=== PATIENT | male | born 1945 | race Caucasian/White ===

== ENCOUNTER 2019-12-23 13:27 | Inpatient (IN) | payer OTHER, MEDICARE ==
--- NOTE | 2019-12-23 14:23 | ED ---
General Adult HPI - General Chief complaint: Chest Pain Stated complaint: Chest Pain Time Seen by Provider: 12/23/19 13:40 Source: patient, RN notes reviewed, old records reviewed Mode of arrival: wheelchair Limitations: no limitations - History of Present Illness Initial comments: This is a 74-year-old male who presents emergency Department complaining of a 5- 6 month history of shortness of breath. Patient states yesterday he was short of breath after waking up from a nap and he also is experiencing chest pain. Patient states the pain and shortness of breath lasted about 15 minutes and then subsided. Patient states since that time he's had no shortness of breath or chest pain but he has not exerted himself at all. Patient states she has no risk factors for coronary artery disease except his family history is strong for coronary artery disease. Patient states he lost brother year ago who was younger than him to a heart attack. Patient denies any recent fever chills or cough. Patient denies any abdominal pain patient denies nausea vomiting diarrhea. Patient denies headache lightheadedness or dizziness. - Related Data Allergies Allergy/AdvReac Type Severity Reaction Status Date / Time No Known Allergies Allergy Verified 12/23/19 13:44 Review of Systems ROS Statement: Those systems with pertinent positive or pertinent negative responses have been documented in the HPI. ROS Other: All systems not noted in ROS Statement are negative. Past Medical History Past Medical History: Cancer, Hyperlipidemia Additional Past Medical History / Comment(s): sleep apnea, prostate ca History of Any Multi-Drug Resistant Organisms: None Reported Past Surgical History: Hernia Repair, Prostate Surgery Past Psychological History: PTSD Smoking Status: Current every day smoker Past Alcohol Use History: None Reported Past Drug Use History: None Reported General Exam - General Exam Comments Initial Comments: GENERAL: Patient is well-developed and well-nourished. Patient is nontoxic and well- hydrated and is in no acute distress. ENT: Neck is soft and supple. No significant lymphadenopathy is noted. Oropharynx is clear. Moist mucous membranes. Neck has full range of motion without eliciting any pain. EYES: The sclera were anicteric and conjunctiva were pink and moist. Extraocular movements were intact and pupils were equal round and reactive to light. Eyelids were unremarkable. PULMONARY: Unlabored respirations. Good breath sounds bilaterally. No audible rales rhonchi or wheezing was noted. CARDIOVASCULAR: There is a regular rate and rhythm without any murmurs gallops or rubs. ABDOMEN: Soft and nontender with normal bowel sounds. SKIN: Skin is clear with no lesions or rashes and otherwise unremarkable. NEUROLOGIC: Patient is alert and oriented x3. Cranial nerves II through XII are grossly intact. Motor and sensory are also intact. Normal speech, volume and content. Symmetrical smile. Cerebellar exam grossly intact. MUSCULOSKELETAL: Normal extremities with adequate strength and full range of motion. No lower extremity swelling or edema. No calf tenderness. LYMPHATICS: No significant lymphadenopathy is noted PSYCHIATRIC: Normal psychiatric evaluation. Limitations: no limitations Course Vital Signs 12/23/19 12/23/19 13:38 14:16 Temperature 98.3 F Pulse Rate 59 L Pulse Rate [ 64 Field Agent ] Respiratory 18 Rate Blood Pressure 156/70 O2 Sat by Pulse 95 Oximetry Medical Decision Making - Medical Decision Making EKG shows normal sinus rhythm at 63 bpm [place] interval is on a 54 QRS is 96 Q-T intervals 438 QTC is 448. Patient's EKG shows no ST segment elevation or depression. Left lower lobe pneumonia on the x-ray. Started the patient Rocephin and Zithromax. I spoke with Dr. Joy agreed to admit the patient admitted the patient wrote admitting orders. - Lab Data Result diagrams: 12/23/19 14:10 12/23/19 14:10 Lab Results 12/23/19 12/23/19 12/23/19 Range/Units 14:10 14:10 14:10 WBC 20.7 H (3.8-10.6) k/uL RBC 4.41 (4.30-5.90) m/uL Hgb 14.0 (13.0-17.5) gm/dL Hct 43.0 (39.0-53.0) % MCV 97.5 (80.0-100.0) fL MCH 31.9 (25.0-35.0) pg MCHC 32.7 (31.0-37.0) g/dL RDW 13.5 (11.5-15.5) % Plt Count 302 (150-450) k/uL Neutrophils % (Manual) 61 % Band Neutrophils % 4 % Lymphocytes % (Manual) 17 % Monocytes % (Manual) 10 % Eosinophils % (Manual) 5 % Basophils % (Manual) 1 % Metamyelocytes % 2 % Neutrophils # (Manual) 13.40 H (1.3-7.7) k/uL Lymphocytes # (Manual) 3.52 (1.0-4.8) k/uL Monocytes # (Manual) 2.07 H (0-1.0) k/uL Eosinophils # (Manual) 1.04 H (0-0.7) k/uL Basophils # (Manual) 0.21 H (0-0.2) k/uL Metamyelocytes # (Man) 0.41 H (0) k/uL Nucleated RBCs 0 (0-0) /100 WBC Manual Slide Review Performed PT 10.7 (9.0-12.0) sec INR 1.0 (<1.2) APTT 26.4 (22.0-30.0) sec D-Dimer 0.27 (<0.60) mg/L FEU Sodium 139 (137-145) mmol/L Potassium 4.2 (3.5-5.1) mmol/L Chloride 103 (98-107) mmol/L Carbon Dioxide 25 (22-30) mmol/L Anion Gap 11 mmol/L BUN 18 (9-20) mg/dL Creatinine 0.63 L (0.66-1.25) mg/dL Est GFR (CKD-EPI)AfAm >90 (>60 ml/min/1.73 sqM) Est GFR (CKD-EPI)NonAf >90 (>60 ml/min/1.73 sqM) Glucose 127 H (74-99) mg/dL Calcium 9.3 (8.4-10.2) mg/dL Magnesium 1.8 (1.6-2.3) mg/dL Total Bilirubin 0.4 (0.2-1.3) mg/dL AST 81 H (17-59) U/L ALT 59 H (4-49) U/L Alkaline Phosphatase 75 (38-126) U/L Troponin I (0.000-0.034) ng/mL NT-Pro-B Natriuret Pep pg/mL Total Protein 7.4 (6.3-8.2) g/dL Albumin 4.2 (3.5-5.0) g/dL 12/23/19 12/23/19 Range/Units 14:10 14:10 WBC (3.8-10.6) k/uL RBC (4.30-5.90) m/uL Hgb (13.0-17.5) gm/dL Hct (39.0-53.0) % MCV (80.0-100.0) fL MCH (25.0-35.0) pg MCHC (31.0-37.0) g/dL RDW (11.5-15.5) % Plt Count (150-450) k/uL Neutrophils % (Manual) % Band Neutrophils % % Lymphocytes % (Manual) % Monocytes % (Manual) % Eosinophils % (Manual) % Basophils % (Manual) % Metamyelocytes % % Neutrophils # (Manual) (1.3-7.7) k/uL Lymphocytes # (Manual) (1.0-4.8) k/uL Monocytes # (Manual) (0-1.0) k/uL Eosinophils # (Manual) (0-0.7) k/uL Basophils # (Manual) (0-0.2) k/uL Metamyelocytes # (Man) (0) k/uL Nucleated RBCs (0-0) /100 WBC Manual Slide Review PT (9.0-12.0) sec INR (<1.2) APTT (22.0-30.0) sec D-Dimer (<0.60) mg/L FEU Sodium (137-145) mmol/L Potassium (3.5-5.1) mmol/L Chloride (98-107) mmol/L Carbon Dioxide (22-30) mmol/L Anion Gap mmol/L BUN (9-20) mg/dL Creatinine (0.66-1.25) mg/dL Est GFR (CKD-EPI)AfAm (>60 ml/min/1.73 sqM) Est GFR (CKD-EPI)NonAf (>60 ml/min/1.73 sqM) Glucose (74-99) mg/dL Calcium (8.4-10.2) mg/dL Magnesium (1.6-2.3) mg/dL Total Bilirubin (0.2-1.3) mg/dL AST (17-59) U/L ALT (4-49) U/L Alkaline Phosphatase (38-126) U/L Troponin I <0.012 (0.000-0.034) ng/mL NT-Pro-B Natriuret Pep 53 pg/mL Total Protein (6.3-8.2) g/dL Albumin (3.5-5.0) g/dL Disposition Clinical Impression: Pneumonia, Chest pain Disposition: ADMITTED IP TO THIS HOSP Referrals: None,Stated [REFERRING] - 1-2 days Time of Disposition: 16:15
[2019-12-23 14:45] LABS: ALT 59 U/L (4-49); AST 81 U/L (17-59); African American GFR (CKD) >90 (>60 ml/min/1.73 sqM); Albumin 4.2 g/dL (3.5-5.0); Alkaline Phosphatase 75 U/L (38-126); Anion Gap 11 mmol/L; Blood Urea Nitrogen 18 mg/dL (9-20); Calcium 9.3 mg/dL (8.4-10.2); Carbon Dioxide 25 mmol/L (22-30); Chloride 103 mmol/L (98-107); Glucose 127 mg/dL (74-99); MCH 31.9 pg (25.0-35.0); MCHC 32.7 g/dL (31.0-37.0); MCV 97.5 fL (80.0-100.0); Magnesium 1.8 mg/dL (1.6-2.3); Mean Platelet Volume 7.2; Non-African American GFR(CKD) >90 (>60 ml/min/1.73 sqM); Platelet Count 302 k/uL (150-450); Potassium 4.2 mmol/L (3.5-5.1); RBC 4.41 m/uL (4.30-5.90); RDW 13.5 % (11.5-15.5); Sodium 139 mmol/L (137-145); Total Bilirubin 0.4 mg/dL (0.2-1.3); Total Protein 7.4 g/dL (6.3-8.2); WBC 20.7 k/uL (3.8-10.6)
[2019-12-23 14:55] LABS: D-Dimer 0.27 mg/L FEU (<0.60); Partial Thromboplastin Time 26.4 sec (22.0-30.0); Prothrombin Time 10.7 sec (9.0-12.0)
--- NOTE | 2019-12-23 14:55 | XR ---
EXAMINATION TYPE: XR chest 2V DATE OF EXAM: 12/23/2019 COMPARISON: None INDICATION: Chest pain, short of breath TECHNIQUE: Frontal and lateral views of the chest are obtained. FINDINGS: The heart size is normal. The pulmonary vasculature is normal. There is a moderate infiltrate at the left lung base partially silhouetting the left diaphragm. Corre late for pneumonia. Follow-up is recommended.. IMPRESSION: 1. Left lower lobe infiltrate. Correlate for pneumonia. Follow-up is recommended.
[2019-12-23 15:39] LABS: Band Neutrophils % 4 %; Basophils # (M) 0.21 k/uL (0-0.2); Eosinophils # (M) 1.04 k/uL (0-0.7); Lymphocytes # (M) 3.52 k/uL (1.0-4.8); Metamyelocytes # (M) 0.41 k/uL (0); Metamyelocytes % 2 %; Monocytes # (M) 2.07 k/uL (0-1.0); Neutrophils % (M) 61 %; Nucleated Red Blood Cells 0 /100 WBC (0-0); Total Cells Counted 100
[2019-12-23] MEDS ORDERED: cefTRIAXone IN SWFI 1,000 MG/10 ML SYRINGE IVP STA (15:41)
[2019-12-23] MEDS ORDERED: AZITHROMYCIN 500 MG in SODIUM CHLORIDE 0.9% 250 ML IVPB STA (16:15)
[2019-12-23] MEDS ORDERED: PNEUMONIA PROTOCOL UTILIZED 1 EACH MISC PO PRN (16:15)
--- NOTE | 2019-12-23 17:25 | P.HPIM ---
History of Present Illness Patient is a pleasant 74-year-old gentleman came in emergency department compensative for chest pain neck neck pain which started after an episode of apnea while he was taking a nap was short of breath has to take a deep breath after the apneic episode which led to some neck pain radiating to the chest area. The pain is musculoskeletal in nature lasted about 15 minutes no associated diaphoresis lightheadedness on associated shortness of breath at that time. Patient denied any fever chills EKG did not show any acute ST-T wave changes for stress of troponin is negative. Patient had elevated white blood cell count of 20,000 had occasional cough denied any fever patient chest x-ray was read as probable left lower lobe infiltrate correlate for pneumonia. Patient incidentally found to have eosinophilia as well. Patient was admitted to my service but patient has house closing tomorrow because of which she is wishing to go home. His chest pain is nonexertional and nonpleuritic atypical Review of Systems REVIEW OF SYSTEMS: CONSTITUTIONAL: No fever, no malaise, no fatigue. HEENT: No recent visual problems or hearing problems. Denied any sore throat. CARDIOVASCULAR: No orthopnea, PND, no palpitations, no syncope. PULMONARY: no hemoptysis. GASTROINTESTINAL: No diarrhea, no nausea, no vomiting, no abdominal pain. NEUROLOGICAL: No headaches, no weakness, no numbness. HEMATOLOGICAL: Denies any bleeding or petechiae. GENITOURINARY: Denies any burning micturition, frequency, or urgency. MUSCULOSKELETAL/RHEUMATOLOGICAL: Denies any joint pain, swelling, or any muscle pain. ENDOCRINE: Denies any polyuria or polydipsia. The rest of the 14-point review of systems is negative. Past Medical History Past Medical History: Cancer, Hyperlipidemia Additional Past Medical History / Comment(s): sleep apnea, prostate ca History of Any Multi-Drug Resistant Organisms: None Reported Past Surgical History: Hernia Repair, Prostate Surgery Past Psychological History: PTSD Smoking Status: Current every day smoker Past Alcohol Use History: None Reported Past Drug Use History: None Reported Medications and Allergies Home Medications Medication Instructions Recorded Confirmed Type Cefuroxime Axetil [Ceftin] 500 mg PO BID 7 Days #14 tab 12/23/19 Rx Citalopram Hydrobromide 20 mg PO DAILY 12/23/19 12/23/19 History [Citalopram HBr] Docusate [Colace] 100 mg PO HS 12/23/19 12/23/19 History Doxazosin [Cardura] 4 mg PO DAILY 12/23/19 12/23/19 History Fluticasone Nasal [place] [Flonase 1 spray EA NOSTRIL DAILY PRN 12/23/19 12/23/19 History Nasal [place]] Multivitamins, Thera [Multivitamin 1 tab PO DAILY 12/23/19 12/23/19 History (formulary)] Naproxen [Naprosyn] 500 mg PO BID 12/23/19 12/23/19 History Potassium Chloride [Klor-Con 20] 10 meq PO DAILY 12/23/19 12/23/19 History Simvastatin [Zocor] 40 mg PO DAILY 12/23/19 12/23/19 History Allergies Allergy/AdvReac Type Severity Reaction Status Date / Time No Known Allergies Allergy Verified 12/23/19 16:26 Physical Exam Vitals: Vital Signs Temp Pulse Pulse Resp BP Pulse Ox 12/23/19 16:31 82 18 141/73 97 12/23/19 15:30 59 L 18 135/73 97 12/23/19 14:16 64 12/23/19 13:38 98.3 F 59 L 18 156/70 95 Intake and Output 12/23/19 12/23/19 12/23/19 06:59 14:59 22:59 Other: Weight 96.615 kg PHYSICAL EXAMINATION: GENERAL: The patient is alert and oriented x3, not in any acute distress. Well developed, well nourished. HEENT: Pupils are round and equally reacting to light. EOMI. No scleral icterus. No conjunctival pallor. Normocephalic, atraumatic. No pharyngeal erythema. No thyromegaly. CARDIOVASCULAR: S1 and S2 present. No murmurs, rubs, or gallops. PULMONARY: Chest is clear to auscultation, no wheezing or crackles. ABDOMEN: Soft, nontender, nondistended, normoactive bowel sounds. No palpable organomegaly. MUSCULOSKELETAL: No joint swelling or deformity. EXTREMITIES: No cyanosis, clubbing, or pedal edema. NEUROLOGICAL: Gross neurological examination did not reveal any focal deficits. SKIN: No rashes. Results CBC & Chem 7: 12/23/19 14:10 12/23/19 14:10 Labs: Abnormal Lab Results - Last 24 Hours (Table) 12/23/19 12/23/19 Range/Units 14:10 14:10 WBC 20.7 H (3.8-10.6) k/uL Neutrophils # (Manual) 13.40 H (1.3-7.7) k/uL Monocytes # (Manual) 2.07 H (0-1.0) k/uL Eosinophils # (Manual) 1.04 H (0-0.7) k/uL Basophils # (Manual) 0.21 H (0-0.2) k/uL Metamyelocytes # (Man) 0.41 H (0) k/uL Creatinine 0.63 L (0.66-1.25) mg/dL Glucose 127 H (74-99) mg/dL AST 81 H (17-59) U/L ALT 59 H (4-49) U/L Assessment and Plan Plan: -Chest pain atypical noncardiac patient will need a stress test but wanted to go home because of which I ordered an outpatient stress test will order this second set of troponin if that's negative patient will be discharged today. -leukocytosis with possibility of left lower lobe pneumonia clinically patient doesn't have any bronchophony egophony or symptoms of pneumonia although patient does have leukocytosis and crusting the chest x-ray findings patient will be given prescription for Ceftin for 7 days and repeat the CBC in couple days make sure his white blood cell count is coming down -Hyperlipidemia -Nicotine abuse: Counseling was provided his -PTSD patient will be discharged at this second troponin with a prescription of outpatient stress test Ceftin and repeat CBC in 2 days
--- NOTE | 2019-12-23 17:25 | P.DS ---
Providers Date of admission: 12/23/19 16:15 Attending physician: Rahel Joy Consults: 12/23/19 16:17 Consult Physician Urgent Consulting Provider: [facility] Consult Reason/Comments: Chest pain Do you want consulting provider notified?: Yes Primary care physician: [facility] Hospital Course: Please refer to my HPI for further details Plan - Discharge Summary New Discharge Prescriptions: New Cefuroxime Axetil [Ceftin] 500 mg PO BID 7 Days #14 tab No Action Fluticasone Nasal [place] [Flonase Nasal [place]] 1 spray EA NOSTRIL DAILY PRN PRN Reason: allergies/hay fever Multivitamins, Thera [Multivitamin (formulary)] 1 tab PO DAILY Potassium Chloride [Klor-Con 20] 10 meq PO DAILY Simvastatin [Zocor] 40 mg PO DAILY Naproxen [Naprosyn] 500 mg PO BID Citalopram Hydrobromide [Citalopram HBr] 20 mg PO DAILY Doxazosin [Cardura] 4 mg PO DAILY Docusate [Colace] 100 mg PO HS Discharge Medication List Cefuroxime Axetil [Ceftin] 500 mg PO BID 7 Days #14 tab 12/23/19 [Rx] Citalopram Hydrobromide [Citalopram HBr] 20 mg PO DAILY 12/23/19 [History] Docusate [Colace] 100 mg PO HS 12/23/19 [History] Doxazosin [Cardura] 4 mg PO DAILY 12/23/19 [History] Fluticasone Nasal [place] [Flonase Nasal [place]] 1 spray EA NOSTRIL DAILY PRN 12/23/19 [History] Multivitamins, Thera [Multivitamin (formulary)] 1 tab PO DAILY 12/23/19 [History] Naproxen [Naprosyn] 500 mg PO BID 12/23/19 [History] Potassium Chloride [Klor-Con 20] 10 meq PO DAILY 12/23/19 [History] Simvastatin [Zocor] 40 mg PO DAILY 12/23/19 [History] Follow up Appointment(s)/Referral(s): None,Stated [REFERRING] - 1-2 days [facility] [Primary Care Provider] - 3 Days
[2019-12-23 20:21] VITALS: BP 136/84; PULSE 76; RESP 19; TEMP 98.6
[2019-12-24] MEDS ORDERED: AZITHROMYCIN 500 MG TAB PO SCH (16:00)
== END 2019-12-23 20:31 | disposition home or self-care (01) | DRG 195 ==
LOC: EC 13:27 → 3SCARD 16:15
PROVIDERS: ADMIT Internal Medicine; ATTEND Internal Medicine
DX: J18.9 Pneumonia, unspecified organism (principal); D72.1 Eosinophilia; E78.5 Hyperlipidemia, unspecified; F43.10 Post-traumatic stress disorder, unspecified; F17.200 Nicotine dependence, unspecified, uncomplicated; M54.2 Cervicalgia; Z98.890 Other specified postprocedural states; Z85.46 Personal history of malignant neoplasm of prostate; G47.30 Sleep apnea, unspecified; Z79.1 Long term (current) use of non-steroidal anti-inflammatories (NSAID); Z79.899 Other long term (current) drug therapy; Z82.49 Family history of ischemic heart disease and other diseases of the circulatory system
CPT/HCPCS: 36415; 71046; 80053; 83735; 83880; 84484; 85025; 85379; 85610; 85730; 87040; 93005; 99285

== ENCOUNTER → 2020-01-19 | Outpatient (CLI) | payer OTHER ==
[~2020-01-19] MED LIST: REGADENOSON 0.4 MG/5 ML SYRINGE IV ONE
== END | disposition home or self-care (01) ==
LOC: RADNMMAIN 08:09
PROVIDERS: ATTEND Physician Assistant
DX: Z53.9 Procedure and treatment not carried out, unspecified reason (principal)

== ENCOUNTER → 2020-01-20 | Outpatient (CLI) | payer OTHER ==
--- NOTE | 2020-01-20 12:48 | NM ---
EXAMINATION TYPE: NM stress lexiscan cardiolite DATE OF EXAM: 01/20/2020 COMPARISON: NONE HISTORY: Chest pain TECHNIQUE: After the intravenous administration of 9.7 mCi Tc 99m Sestamibi - Cardiolite resting SPE CT images acquired 45 minutes post injection. The patient received 0.4mg Lexiscan, 26.9 mCi Tc 99m Sestamibi - Stress images obtained [address] injection FINDINGS: There is diminished radiotracer on the resting images along the inferior wall. This is more normal appearance on the stress images. No stress defects mismatch with the resting defects are iden tified. Polar maps suggest a small distal lateral wall reversible defect which may be related to the artifact. The ejection fraction is 63%. Wall motion is normal. IMPRESSION: 1. No suspicious stress-induced ischemic changes evident. 2. Artifact with loss of radiotracer along the inferior wall on the stress rest images. 3. Normal wall motion. 4. Normal ejection fraction
--- NOTE | 2020-01-21 00:47 | EST ---
EXERCISE STRESS AGE: 74 SEX: M HT: 5'11" WT: 213 PROTOCOL: Lexiscan Cardiolite STAGE: DURATION OF EXERCISE: HEART RATE REST: 62 BLOOD PRESSURE REST: 149/74 MAXIMUM HEART RATE ACHIEVED: 73 MAXIMUM BLOOD PRESSURE: 149/74 85% MPHR: 123 100% MPHR: 145 METS: INDICATIONS: Shortness of breath. CLINICAL INFORMATION: Baseline rhythm is a sinus mechanism, rate 62, normal axis and intervals. Normal echocardiogram. Baseline blood pressure 149/74 mmHg. Patient received an injection of Lexiscan. Electrocardiograph monitoring revealed no evidence of diagnostic ischemic ST deviation. Cardiolite was injected per protocol. CONCLUSION: 1. Nondiagnostic electrocardiograph stress testing. 2. Nuclear images will be reported separately. MMODL / IJN: [id number] /
== END | disposition home or self-care (01) ==
LOC: RADNMMAIN 07:59
DX: R07.9 Chest pain, unspecified (principal)
CPT/HCPCS: 93017; 78452; A9500

== ENCOUNTER → 2020-02-17 | Outpatient (CLI) | payer OTHER | END | disposition home or self-care (01) | LOC: LABWHC1 12:15 | PROVIDERS: ATTEND Internal Medicine Hematology & Oncology | DX: D72.829 Elevated white blood cell count, unspecified (principal) | CPT/HCPCS: 36415; 81206; 81207 ==

== ENCOUNTER → 2020-12-19 | Outpatient (CLI) | payer MEDICARE, OTHER ==
[2020-12-19 14:03] LABS: African American GFR (CKD) >90 (>60 ml/min/1.73 sqM); Blood Urea Nitrogen 16 mg/dL (9-20); Non-African American GFR(CKD) >90 (>60 ml/min/1.73 sqM)
--- NOTE | 2020-12-19 15:43 | CT ---
EXAMINATION TYPE: CT pelvis w con DATE OF EXAM: 12/19/2020 COMPARISON: None HISTORY: Left inguinal hernia CT DLP: 1005.9 mGycm Automated exposure control for dose reduction was used. CONTRAST: Performed with IV Contrast, patient injected with 100 mL of Isovue 300. FINDINGS: Contrast is seen within the bladder. There is no free fluid or adenopathy. Diverticulosis of the colo n is seen with retained debris throughout the visualized portion of the colon. There is no diagnostic of evidence of a bowel containing hernia. There are small fat-containing inguinal hernias bilaterall y. Hypertrophic and degenerative changes of the spine. IMPRESSION: SMALL FAT-CONTAINING INGUINAL HERNIAS BILATERALLY WITH NO BOWEL CONTAINING HERNIA IDENTIFIED.
== END | disposition home or self-care (01) ==
LOC: RADCTMAIN 13:09
PROVIDERS: ATTEND Surgery
DX: K40.30 Unilateral inguinal hernia, with obstruction, without gangrene, not specified as recurrent (principal)
CPT/HCPCS: 82565; 84520; 72193; 36415; Q9967

== ENCOUNTER → 2022-03-29 | Outpatient (CLI) | payer OTHER | END | disposition home or self-care (01) | LOC: LABWHC1 14:59 | PROVIDERS: ATTEND Internal Medicine Hematology & Oncology | DX: C92.10 Chronic myeloid leukemia, BCR/ABL-positive, not having achieved remission (principal) | CPT/HCPCS: 36415; 81206 ==

== ENCOUNTER → 2022-12-11 | Outpatient (CLI) | payer OTHER ==
--- NOTE | 2022-12-11 15:18 | US ---
EXAMINATION TYPE: US liver DATE OF EXAM: 12/11/2022 COMPARISON: NONE CLINICAL INDICATION: Male, 77 years old with history of K74.60 UNSPECIFIED CIRRHOSIS OF LIVER; No octavio n. Abnormal labs. TECHNIQUE: Multiple sonographic images of the right upper quadrant are obtained. FINDINGS: EXAM MEASUREMENTS: Liver Length: 15.9 cm Gallbladder Wall: 0.2 cm Right Kidney: 10.6 x 4.8 x 5.8 cm DOCUMENT PROCESSING SPECIALIST NOTES: Suboptimal exam due to overlying bowel gas Pancreas: Obscured by bowel gas Liver: Scanned through ribs. Limited visualization. Appears coarse. Increased echotexture. Gallbladder: wnl, fold seen Evidence for sonographic Sheldon's sign: neg CBD: Obscured by overlying bowel gas Right Kidney: No hydronephrosis or masses seen IMPRESSION: 1. Hepatic steatosis. 2. No evidence for acute abdominal process.
== END | disposition home or self-care (01) ==
LOC: RADUSWWP 13:09
PROVIDERS: ATTEND Family Medicine
DX: K76.0 Fatty (change of) liver, not elsewhere classified (principal); K74.60 Unspecified cirrhosis of liver
CPT/HCPCS: 76705

== ENCOUNTER 2025-02-06 14:38 | Emergency (ER) | payer OTHER ==
[2025-02-06 14:44] VITALS: RESP 18
--- NOTE | 2025-02-06 15:01 | ED ---
Fall HPI - General Source: patient, EMS, RN notes reviewed Mode of arrival: EMS <Francie Plata - Last Filed: 02/06/25 17:03> <Jessie Adamson - Last Filed: 02/06/25 17:30> - General Chief Complaint: Fall Stated Complaint: Fall Time Seen by Provider: 02/06/25 14:46 - History of Present Illness Initial Comments: 79-year-old male presenting to the emergency department via EMS with c-collar in place after a fall. Patient states that he was getting out of his car when he became off balance causing him to fall primarily onto his right side. He states that he did hit the right side of his head on the pavement however denies loss of consciousness at the time of the fall. He denied syncope stating that he lost his footing. Currently is denying neck pain, headaches, visual disturbances. He states that the right side of his body took the brunt of the force as he fell onto his right shoulder and ribs. He states that he was unable to get up from the fall and fell like he was having a difficulty breathing after this. Currently patient states that he has pain to the right arm and is unable to lift up his arm and endorses pain to the right ribs. Is denying chest pain. Denies blood thinner use. (Francie Plata) - Related Data Home Medications Medication Instructions Recorded Confirmed Citalopram Hydrobromide 20 mg PO DAILY 12/23/19 12/23/19 [Citalopram HBr] Docusate [Colace] 100 mg PO HS 12/23/19 12/23/19 Doxazosin [Cardura] 4 mg PO DAILY 12/23/19 12/23/19 Fluticasone Nasal [place] [Flonase 1 spray EA NOSTRIL DAILY PRN 12/23/19 12/23/19 Nasal [place]] Multivitamins, Thera [Multivitamin 1 tab PO DAILY 12/23/19 12/23/19 (formulary)] Naproxen [Naprosyn] 500 mg PO BID 12/23/19 12/23/19 Potassium Chloride [Klor-Con 20] 10 meq PO DAILY 12/23/19 12/23/19 Simvastatin [Zocor] 40 mg PO DAILY 12/23/19 12/23/19 Previous Rx's Medication Instructions Recorded cefuroxime axetiL [Ceftin] 500 mg PO BID 7 Days #14 tab 12/23/19 Lidocaine 5% Patch [Lidoderm 5% 1 patch TOPICAL DAILY #30 patch 02/06/25 Patch] Allergies Allergy/AdvReac Type Severity Reaction Status Date / Time No Known Allergies Allergy Verified 02/06/25 14:44 Review of Systems ROS Other: All systems not noted in ROS Statement are negative. <Francie Plata - Last Filed: 02/06/25 17:03> ROS Other: All systems not noted in ROS Statement are negative. <Jessie Adamson - Last Filed: 02/06/25 17:30> ROS Statement: Those systems with pertinent positive or pertinent negative responses have been documented in the HPI. Past Medical History Past Medical History: Cancer, Hyperlipidemia Additional Past Medical History / Comment(s): sleep apnea, prostate ca History of Any Multi-Drug Resistant Organisms: None Reported Past Surgical History: Hernia Repair, Prostate Surgery Past Psychological History: PTSD Past Alcohol Use History: None Reported Past Drug Use History: None Reported <Francie Plata - Last Filed: 02/06/25 17:03> General Exam Limitations: no limitations Head exam: Present: atraumatic, normocephalic, normal inspection Neck exam: Present: normal inspection. Absent: tenderness, meningismus, lymphadenopathy Respiratory exam: Present: normal lung sounds bilaterally, chest wall tenderness (anterior right ribs to palpation and on inspiration). Absent: respiratory distress, wheezes, rales, rhonchi, stridor Cardiovascular Exam: Present: regular rate, normal rhythm, normal heart sounds. Absent: systolic murmur, diastolic murmur, rubs, gallop, clicks GI/Abdominal exam: Present: soft, normal bowel sounds. Absent: distended, tenderness, guarding, rebound, rigid Right Shoulder Exam: Present: tenderness. Absent: full ROM, swelling Upper Arm exam: Present: tenderness. Absent: full ROM, swelling Elbow exam: Present: full ROM. Absent: tenderness, swelling, abrasion Forearm Wrist exam: Present: full ROM. Absent: tenderness Hand Wrist exam: Present: full ROM. Absent: tenderness <Francie Plata - Last Filed: 02/06/25 17:03> Course Vital Signs 02/06/25 14:41 Temperature 98.9 F Pulse Rate 70 Respiratory 18 Rate Blood Pressure 134/91 O2 Sat by Pulse 95 Oximetry Medical Decision Making <Francie Plata - Last Filed: 02/06/25 17:03> - Medical Decision Making Was pt. sent in by a medical professional or institution (, [facility]MANN, DIRECTOR INSURANCE, urgent care, hospital, or care home...) When possible be specific @ -[No] Did you speak to anyone other than the patient for history (EMS, parent, family, police, friend...)? What history was obtained from this source @ -[No] Did you review nursing and triage notes (agree or disagree)? Why? @ -[I reviewed and agree with nursing and triage notes] Were old charts reviewed (outside hosp., previous admission, EMS record, old EKG, old radiological studies, urgent care reports/EKG's, care home records)? Report findings @ -[No old charts were reviewed] Differential Diagnosis (chest pain, altered mental status, abdominal pain women, abdominal pain men, vaginal bleeding, weakness, fever, dyspnea, syncope, headache, dizziness, GI bleed, back pain, seizure, CVA, palpatations, mental health, musculoskeletal)? @ -Shoulder fracture, clavicle fracture, rib fracture, pneumothorax, contusion, intracranial hemorrhage, cervical spine fracture, this list is not all inclusive EKG interpreted by me (3pts min.). @Completed at 1450 sinus rhythm with a ventricular rate of 69, NJ interval 155, QRS 92, QT 366, QTc 386. X-rays interpreted by me (1pt min.). @ -[None done] CT interpreted by me (1pt min.). @ -CT of the brain and C-spine without contrast reveals no acute intracranial cervical spine process U/S interpreted by me (1pt. min.). @ -[None done] What testing was considered but not performed or refused? (CT, X-rays, U/S, labs)? Why? @ -[None] What meds were considered but not given or refused? Why? @ -[None] Did you discuss the management of the patient with other professionals (professionals i.e. HERMANN Elise, DIRECTOR INSURANCE, lab, RT, psych nurse, social media marketing specialist, consumer loan manager, teacher, ship officer, shoe caser)? Give summary @ -[No] Was smoking cessation discussed for >3mins.? @ -[No] Was critical care preformed (if so, how long)? @ -[No] Were there social determinants of health that impacted care today? How? (Homelessness, low income, unemployed, alcoholism, drug addiction, transportation, low edu. Level, literacy, decrease access to med. care, care home, rehab)? @ -[No] Was there de-escalation of care discussed even if they declined (Discuss DNR or withdrawal of care, Hospice)? DNR status @ -[No] What co-morbidities impacted this encounter? (DM, HTN, Smoking, COPD, CAD, Cancer, CVA, ARF, Chemo, Hep., AIDS, mental health diagnosis, sleep apnea, morbid obesity)? @ -[None] Was patient admitted / discharged? Hospital course, mention meds given and route, prescriptions, significant lab abnormalities, going to OR and other pertinent info. @ -79-year-old male presenting via EMS after a fall. Patient is c-collar in place. Patient has good pulses to the right upper extremity. Unable to actively move the right shoulder. Neurovascularly intact of the right upper extremity. Was offered pain medication however declined. CT imaging of the brain and C-spine is unremarkable. Patient is signed out to my colleague, Jessie Adamson PA-C, pending x-ray results and disposition. Undiagnosed new problem with uncertain prognosis? @ -[No] Drug Therapy requiring intensive monitoring for toxicity (Heparin, Nitro, Insulin, Cardizem)? @ -[No] Were any procedures done? @ -[No] Diagnosis/symptom? @ -[default] Acute, or Chronic, or Acute on Chronic? @ -[default] Uncomplicated (without systemic symptoms) or Complicated (systemic symptoms)? @ -[default] Side effects of treatment? @ -[No] Exacerbation, Progression, or Severe Exacerbation? @ -[No] Poses a threat to life or bodily function? How? (Chest pain, USA, VT, pneumonia, PE, COPD, DKA, ARF, appy, cholecystitis, CVA, Diverticulitis, Homicidal, Suicidal, threat to staff... and all critical care pts) @ -[No] (Francie Plata) Disposition <Francie Plata - Last Filed: 02/06/25 17:03> Is patient prescribed a controlled substance at d/c from ED?: No <Jessie Adamson - Last Filed: 02/06/25 17:30> Clinical Impression: Shoulder contusion, Rib contusion, Fall Disposition: HOME SELF-CARE Condition: Stable Instructions (If sedation given, give patient instructions): Fall Prevention for Older Adults (ED), P.R.I.C.E. Treatment (ED) Additional Instructions: Please follow up with your doctor. Return to the emergency department for new or worsening symptoms. Prescriptions: Lidocaine 5% Patch [Lidoderm 5% Patch] 1 patch TOPICAL DAILY #30 patch Referrals: Aleksandr Duffy DO [Primary Care Provider] - 1-2 days
--- NOTE | 2025-02-06 16:22 | CT ---
EXAMINATION TYPE: CT brain cspine wo con DATE OF EXAM: 02/06/2025 3:40 PM COMPARISON: None. CLINICAL INDICATION: Male, 79 years old with history of fall, pain; FALL TECHNIQUE: Brain: Multiple axial CT images of the brain were obtained without IV contrast. Cspine: Axial CT images from the skull base to the inferior aspect of T2 we obtained without intraven ous contrast. Coronal and sagittal reformatted images were also reviewed. . CT DLP: 1489.5 mGycm, Automated exposure control for dose reduction was used. FINDINGS: Brain: Extra-axial spaces: No abnormal extra-axial fluid collections. Ventricular system: Dilatation in proportion to cerebral atrophy. Cerebral parenchyma: Cerebral atrophy. No acute intraparenchymal hemorrhage or mass effect. The garcia -white junction is well differentiated. Scattered hypoattenuating areas are seen within the white mat ter. Cerebellum: Unremarkable. Mass effect: No evidence of midline shift. Intracranial vasculature: unremarkable Soft tissues: Normal. Calvarium/osseous structures: No depressed skull fracture. Paranasal sinuses and mastoid air cells: Clear. Visualized orbits: Orbital contents are intact. Cervical spine: Fracture: None. Osseous structures: Unremarkable Vertebral alignment: Straightening of the normal cervical spinal lordotic curvature. Anterolisthesis of C5 on C6 and retrolisthesis of C4 on C5. Spinal canal/Neural Foramina: Multilevel facet arthropathy and uncovertebral hypertrophy cause varyin g degrees of multilevel neural foraminal narrowing and spinal canal stenosis. Neck soft tissues: Prev ertebral soft tissues are within normal limits. Other: The airway is patent. The lung apices are clear. IMPRESSION: 1. No acute intracranial process. 2. No acute fracture or traumatic subluxation of the cervical spine. [facility], , 02/06/2025 4:19 PM
--- NOTE | 2025-02-06 17:15 | XR ---
EXAMINATION TYPE: XR shoulder complete RT DATE OF EXAM: 02/06/2025 5:05 PM COMPARISON: None. CLINICAL INDICATION: Male, 79 years old with history of fall, pain; PHH, pain TECHNIQUE: XR shoulder complete RT; examined in AP, internally rotated and scapular Y projections. FINDINGS: No evidence of acute osseous pathology, joint dislocation, or soft tissue swelling. The remaining po rtions of the visualized chest are unremarkable. Sclerotic changes at the greater tuberosity, likely sequelae of chronic rotator cuff pathology. IMPRESSION: No acute osseous pathology. [facility], , 02/06/2025 5:12 PM
--- NOTE | 2025-02-06 17:16 | XR ---
EXAMINATION TYPE: XR ribs RT w pa chest xray DATE OF EXAM: 02/06/2025 5:05 PM COMPARISON: Chest radiograph 12/23/2019. CLINICAL INDICATION: Male, 79 years old with history of fall, pain; PHH, pain TECHNIQUE: XR ribs RT w pa chest xray; Frontal and oblique views of the ribs with frontal chest radio graph. FINDINGS: Cardiomegaly and possible mild pulmonary vascular congestive changes. The lung volumes. IMPRESSION: No acute osseous pathology. [facility], , 02/06/2025 5:13 PM
[2025-02-06] MEDS: LIDOCAINE 4% PATCH TOPICAL ONE (17:42)
[2025-02-06] MEDS: ACET/COD 300 MG/30 MG STARTER PACK TAB BTL PO STA (17:43)
[2025-02-06 17:58] VITALS: BP 124/78; PULSE 78; TEMP 97.6
== END 2025-02-06 18:04 | disposition home or self-care (01) ==
LOC: EC 14:38
DX: S40.011A Contusion of right shoulder, initial encounter (principal); S20.219A Contusion of unspecified front wall of thorax, initial encounter; W01.0XXA Fall on same level from slipping, tripping and stumbling without subsequent striking against object, initial encounter
CPT/HCPCS: 70450; 72125; 93005; 99285